=== PATIENT | female | born 1975 | race Caucasian/White ===

== ENCOUNTER 2018-07-31 18:31 | Emergency (ER) | payer OTHER, BC ==
[2018-07-31] MEDS: HYDROCODONE/APAP (5/325) TAB PO (20:40)
== END 2018-07-31 22:57 | disposition home or self-care (01) ==
LOC: FTE 18:31
DX: S92.505A Nondisplaced unspecified fracture of left lesser toe(s), initial encounter for closed fracture (principal); S19.9XXA Unspecified injury of neck, initial encounter; W18.39XA Other fall on same level, initial encounter; Y92.9 Unspecified place or not applicable
CPT/HCPCS: 72040; 73562; 73630-LT; 81025; 99284-25